=== PATIENT | female | born 1950 | race Two or more races ===

== ENCOUNTER 2018-05-27 16:06 | Emergency (ER) | payer MEDICARE, OTHER ==
[~2018-05-27] VITALS: Ht 175.3 cm; Wt 103.3 kg
[~2018-05-27 16:06] MED LIST: ASPI-817 PO; ATOR40TA68 PO; CLON-379 PO; CLOP75TA19 PO; FER325 PO; METO-319 PO; NITR0.4T39 SL; OMEG-157 PO; VALS80TA2 PO
[2018-05-27 16:10] VITALS: Ht 175.3 cm; Wt 103.3 kg
--- NOTE | 2018-05-27 16:18 | ERD ---
ER Documentation Chief Complaint Chief Complaint Complains of Chest pain and SOB Hx of SIN, Stents placed HPI 68-year-old female presents for evaluation of chest pain or shortness of breath. Her symptoms are exertional, they have been going on for 3 days. She has a history of stent placement about 2 years ago. There are no alleviating or aggravating factors, she denies leg swelling, she denies hemoptysis, no history of immobility. She denies fever. ROS All systems reviewed and are negative except as per history of present illness. Medications Home Meds Reported Medications Lorazepam* (Lorazepam*) 0.5 Mg Tablet, 0.5 MG PO HS PRN for SLEEP, TAB 05/27/18 Magnesium Oxide* (Magnesium Oxide*) 400 Mg Tablet, 400 MG PO DAILY, TAB 05/27/18 Amlodipine Besylate* (Norvasc*) 5 Mg Tablet, 5 MG PO DAILY, TAB 05/27/18 Olmesartan Medoxomil (Benicar) 20 Mg Tablet, 20 MG PO DAILY, #30 TAB 05/27/18 Carvedilol* (Carvedilol*) 12.5 Mg Tablet, 12.5 MG PO QPM, #60 TAB 05/27/18 Montelukast Sodium* (Singulair*) 10 Mg Tablet, 10 MG PO QHS, #30 TAB 05/27/18 Discontinued Reported Medications Nitroglycerin* (Nitrostat*) 0.4 Mg Tab.subl, 0.4 MG SL Q5MIN PRN for CHEST PAIN, BOTTLE 11/19/15 Clopidogrel Bisulfate* (Clopidogrel Bisulfate*) 75 Mg Tablet, 75 MG PO DAILY, #30 TAB 11/19/15 Aspirin* (Aspirin* EC) 81 Mg Tablet.dr, 81 MG PO DAILY, TAB 11/19/15 Discontinued Scripts Clonidine Hcl* (Clonidine Hcl*) 0.1 Mg Tab, 0.1 MG PO Q4H PRN for sbp>160, #30 TAB Prov:TIM LOVETT 11/23/15 Valsartan* (Diovan*) 80 Mg Tablet, 80 MG PO BID for 30 Days, TAB Prov:TIM LOVETT 11/23/15 [place]-3/Dha/Epa/Fish Oil (FISH OIL EC 1,000 MG SOFTGEL) 1 Each Capsule.dr, 2000 MG PO BID for 30 Days Prov:TIM LOVETT 11/23/15 Metoprolol Succinate* (Toprol XL*) 50 Mg Tab.er.24h, 50 MG PO BID for 30 Days Prov:TIM LOVETT 11/23/15 Ferrous Sulfate* (Ferrous Sulfate*) 325 Mg Tabec, 325 MG PO DAILY for 30 Days, TAB Prov:TIM LOVETT 11/23/15 Atorvastatin* (Atorvastatin*) 40 Mg Tablet, 40 MG PO HS for 30 Days, TAB Prov:TIM LOVETT 11/23/15 Allergies Allergies: Coded Allergies: iodine (Verified Adverse Reaction, Unknown, 05/27/18) PMhx/Soc History of Surgery: No Anesthesia Reaction: No Hx Neurological Disorder: No Hx Respiratory Disorders: Yes (ASTHMA) Hx Cardiac Disorders: Yes (CARDIAC STENT, HTN) Hx Psychiatric Problems: No Hx Miscellaneous Medical Probl: No Hx Alcohol Use: No Hx Substance Use: No Hx Tobacco Use: Yes FmHx Family History: diabetes Physical Exam Vitals Vital Signs Date Temp Pulse Resp B/P (MAP) Pulse Ox O2 O2 Flow FiO2 Time Delivery Rate 05/27/18 85 18 156/82 100 Room Air 19:03 (106) 05/27/18 96 16 157/88 99 Nasal 2.0 17:00 (111) Cannula 05/27/18 Nasal 2 16:25 Cannula 05/27/18 99.1 107 20 213/97 97 16:10 (135) Physical Exam Const: No acute distress Head: Atraumatic Eyes: Normal Conjunctiva ENT: Normal External Ears, Nose and Mouth. Neck: Full range of motion. No meningismus. Resp: Clear to auscultation bilaterally Cardio: Regular rate and rhythm, no murmurs Abd: Soft, non tender, non distended. Normal bowel sounds Skin: No petechiae or rashes Back: No midline or flank tenderness Ext: No cyanosis, or edema Neur: Awake and alert Psych: Normal Mood and Affect Result Diagram: 05/27/18 1630 05/27/18 1630 Results 24 hrs Laboratory Tests Test 05/27/18 16:30 White Blood Count 5.2 10^3/ul Red Blood Count 5.00 10^6/ul Hemoglobin 13.6 g/dl Hematocrit 42.7 % Mean Corpuscular Volume 85.4 fl Mean Corpuscular Hemoglobin 27.2 pg Mean Corpuscular Hemoglobin Concent 31.9 g/dl Red Cell Distribution Width 14.2 % Platelet Count 255 10^3/UL Mean Platelet Volume 10.1 fl Immature Granulocytes % 0.200 % Neutrophils % 56.7 % Lymphocytes % 29.0 % Monocytes % 8.5 % Eosinophils % 5.0 % Basophils % 0.6 % Nucleated Red Blood Cells % 0.0 /100WBC Immature Granulocytes # 0.010 10^3/ul Neutrophils # 2.9 10^3/ul Lymphocytes # 1.5 10^3/ul Monocytes # 0.4 10^3/ul Eosinophils # 0.3 10^3/ul Basophils # 0.0 10^3/ul Nucleated Red Blood Cells # 0.0 10^3/ul Prothrombin Time 12.6 Sec Prothrombin Time Ratio 1.0 INR International Normalized Ratio 0.93 Sodium Level 142 mmol/L Potassium Level 4.0 mmol/L Chloride Level 108 mmol/L Carbon Dioxide Level 24 mmol/L Anion Gap 10 Blood Urea Nitrogen 17 mg/dl Creatinine 0.78 mg/dl Est Glomerular Filtrat Rate mL/min > 60 mL/min Glucose Level 102 mg/dl Calcium Level 9.8 mg/dl Total Bilirubin 0.7 mg/dl Direct Bilirubin 0.00 mg/dl Indirect Bilirubin 0.7 mg/dl Aspartate Amino Transf (AST/SGOT) 18 IU/L Alanine Aminotransferase (ALT/SGPT) 15 IU/L Alkaline Phosphatase 57 IU/L Troponin I < 0.012 ng/ml B-Type Natriuretic Peptide 364 PG/ML Total Protein 8.4 g/dl Albumin 4.6 g/dl Globulin 3.80 g/dl Albumin/Globulin Ratio 1.21 Procedures/MDM 68-year-old female presents for evaluation of chest pain. Chest x-ray reviewed and was unremarkable, I have a low suspicion for pneumothorax or aortic dissection, low suspicion for pulmonary embolism, given her significant history of coronary disease, I recommended to come in for admission for full acute coronary syndrome workup. Her troponin was negative. Initially the patient did agree to be admitted, however later she changed her mind and wished to leave AGAINST MEDICAL ADVICE, she will follow-up with her primary care doctor tomorrow, I discussed the risks of leaving AGAINST MEDICAL ADVICE, and she understood all these. I encouraged her to return to the ED should she wish to be seen again, or should her chest pain return, or for any other concerning symptoms. The patient has made the decision to leave this Emergency Department and any ongoing care against the advice of the emergency physician. The patient has been informed of and verbalized understanding of the inherent risks of this decision, including , disability and worsening cardiac function. The patient explained to me the reason for wanting to sign out against medical advice which was she felt better and wanted to follow-up with her doctor]. The patient was given alternative therapeutic options including outpatient follow-up]. The patient has the capacity to make this decision and accepts the responsibility of leaving at this time. The patient and all necessary parties have been advised that the patient may return at any time for further evaluation or treatment. The patient's condition at time of discharge is [stable]. EKG: Rate/Rhythm: Normal Sinus Rhythm QRS, ST, T-waves: No changes consistent w/ acute ischemia Impression: No evidence of ischemia or arrhythmia Departure Diagnosis: Primary Impression: Chest pain Chest pain type: unspecified Qualified Codes: R07.9 - Chest pain, unspecified Condition: Stable RODERICK SHAFER MD May 27, 2018 16:18
[2018-05-27] MEDS ORDERED: MONT10TA21 PO (16:56)
[2018-05-27] MEDS ORDERED: CARV12.579 PO (16:57)
[2018-05-27] MEDS ORDERED: OLME20TA20 PO (16:58)
[2018-05-27] MEDS ORDERED: MAGN400T28 PO (16:58)
[2018-05-27] MEDS ORDERED: AMLO5TAB4 PO (16:58)
[2018-05-27] MEDS ORDERED: LORA0.5T PO (16:59)
[2018-05-27 19:03] VITALS: BP 156/82; PULSE 85; RESP 18
== END 2018-05-27 19:07 | disposition left against medical advice (07) ==
LOC: E/R 16:06 → CANBEDREQ 05-30 19:54
DX: R07.9 Chest pain, unspecified (principal); J45.909 Unspecified asthma, uncomplicated; I10 Essential (primary) hypertension; Z79.01 Long term (current) use of anticoagulants; Z79.82 Long term (current) use of aspirin; Z87.891 Personal history of nicotine dependence; Z98.61 Coronary angioplasty status
CPT/HCPCS: 71045; 80053; 83880; 84484; 85025; 85610; 93005

== ENCOUNTER 2018-09-18 23:03 | Emergency (ER) | payer MEDICARE, OTHER ==
[~2018-09-18] VITALS: Wt 106.8 kg
[~2018-09-18 23:03] MED LIST changes: +AMLO5TAB4 PO; -ASPI-817 PO; -ATOR40TA68 PO; +CARV12.579 PO; -CLON-379 PO; -CLOP75TA19 PO; -FER325 PO; +LORA0.5T PO; +MAGN400T28 PO; -METO-319 PO; +MONT10TA21 PO; -NITR0.4T39 SL; +OLME20TA20 PO; -OMEG-157 PO; -VALS80TA2 PO
[2018-09-18 23:06] VITALS: RESP 20
[2018-09-18 23:31] VITALS: BP 174/83; PULSE 96
== END 2018-09-18 23:50 | disposition left against medical advice (07) ==
LOC: E/R 23:03
DX: Z53.21 Procedure and treatment not carried out due to patient leaving prior to being seen by health care provider (principal)
CPT/HCPCS: 93005

== ENCOUNTER 2019-01-17 13:30 | Emergency (ER) | payer MEDICARE, OTHER ==
[~2019-01-17] VITALS: Ht 182.9 cm; Wt 103.7 kg
[~2019-01-17 13:30] MED LIST changes: +DEXL60CA2 PO; +OLME5TAB4 PO; +TURM500C9 PO
[2019-01-17 13:36] VITALS: Ht 182.9 cm; Wt 103.7 kg
[2019-01-17] MEDS ORDERED: SOD CHLORIDE 0.9% 100 ML ONE (16:14)
[2019-01-17] MEDS ORDERED: IOHEXOL 100 ML ONE (16:14)
[2019-01-17 17:00] VITALS: BP 157/80; PULSE 62; RESP 0
== END 2019-01-17 17:47 | disposition home or self-care (01) ==
LOC: E/R 13:30
DX: R06.02 Shortness of breath (principal); R40.2142 Coma scale, eyes open, spontaneous, at arrival to emergency department; R40.2362 Coma scale, best motor response, obeys commands, at arrival to emergency department; R40.2252 Coma scale, best verbal response, oriented, at arrival to emergency department; I10 Essential (primary) hypertension; J45.909 Unspecified asthma, uncomplicated; I25.2 Old myocardial infarction; Z96.649 Presence of unspecified artificial hip joint; Z87.891 Personal history of nicotine dependence
CPT/HCPCS: 36415; 71045; 71250; 80048; 84484; 85025; 85378; 93005; 99285; Q9967